=== PATIENT | female | born 1950 | race Caucasian/White ===

== ENCOUNTER 2022-06-20 11:15 | Outpatient (CLI) | payer MEDICARE, BC, SELFPAY ==
--- NOTE | 2022-06-20 11:30 | CRLHL7_ITS ---
For Patients: As a result of the Century Cures Act, medical imaging exams and procedure reports are released immediately into your electronic medical record. You may view this report before your referring provider. If you have questions, please contact your health care provider. BILATERAL SCREENING MAMMOGRAM WITH COMPUTER-AIDED DETECTION AND TOMOSYNTHESIS TECHNIQUE: CC and MLO views were obtained. These mammographic images have been obtained using full-field digital technique. These mammographic images were interpreted with the benefit of computer-aided detection. Breast Tomosynthesis was used in this interpretation. COMPARISON FILM: 05/23/21, 05/19/20, 01/28/19. FINDINGS: There are scattered areas of fibroglandular density IMPRESSION: There is no radiographic evidence for malignancy. ASSESSMENT: BI-RADS Category 1: Negative RECOMMENDATION: Routine screening mammogram in 1 year. A lay language report of this examination will be provided to the patient. Nadeem Irizarry M.D. Diagnostic Radiologist [email or web address] MACKENZIE/Dictated by: Nadeem Irizarry MD @ 06/20/2022 12:07:00 PM (Electronically Signed)
--- OUTSIDE RECORDS SUMMARY | 2022-06-20 11:34 | XMS_ITS | Clinical Summary ---
:[id number] Author Organization [facility] [place] [address] Care Team Providers Name Role Phone Marisol Loja MD Primary Care Provider [phone] Allergies Active Allergy Reactions Severity Noted Date Comments Venom-Honey Bee Throat Swelling/Closing 04/11/2015 Cyclobenzaprine 10/05/2009 Tuna Oil Hives 12/28/2011 Medications Medication Sig Dispensed Refills Start Date End Date Status ibuprofen (ADVIL; Take 1 tablet by 30 tablet 0 05/25/2014 Active MOTRIN) 600 mg tablet mouth every 6 hours if needed for Pain. naproxen (NAPROSYN) Take 1 tablet by 30 tablet 1 10/09/2014 Active 500 mg tablet mouth 2 times daily with meals. lisinopril-hydrochloro Take 1 tablet by 90 tablet 3 04/11/2015 Active thiazide (10-12.5 mg) mouth once daily. tablet (PRINZIDE; ZESTORETIC)Indications : HTN (hypertension) blood sugar diagnostic Dispense test 50 Strip 3 05/10/2015 Active (ACCU-CHEK SMARTVIEW strips covered by TEST STRIP) the patient stripIndications: Type insurance. Test 3 2 diabetes mellitus times per week without complication (HC) lancets (ACCU-CHEK Test 3 times per 102 Each 3 05/10/2015 Active FASTCLIX)Indications: week Type 2 diabetes mellitus without complication (HC) bisacodyl (DULCOLAX) 5 Take 1 tablet by 1 tablet 0 05/10/2015 Active mg tabletIndications: mouth once daily Type 2 diabetes if needed for mellitus without Constipation. complication (HC) Patient reported Active Problems Problem Noted Date Type 2 diabetes mellitus without complication 04/12/20 15 Endometrial cancer 05/25/2014 Symptomatic varicose veins 02/09/2013 Morbid obesity 12/28/2011 HTN (hypertension) 12/28/2011 Immunizations Name Administration Dates Next Due Tdap 12/28/2011 Zoster (Zostavax-ZVL, live) 03/12/2014 Family History Medical History Relation Name Comments Cancer Brother 1 Cancer Brother 2 Cancer Brother 3 pancreatic Heart Disease Brother 4 Cancer Father lymph nodes Heart Disease Mother Stroke Mother Thyroid Disease Sister Cancer-breast No Family History Relation Name Status Comments Brother 1 Brother 2 Brother 3 Brother 4 Father Mother Sister Social History Tobacco Use Types Packs/Day Years Used Date Never Smoker Smokeless Tobacco: Never Used Tobacco Cessation: Counseling Given: Yes Alcohol Use Standard Drinks/Week Comments Yes 0 (1 standard drink = 0.6 oz pure alcoho l) rarely (satdings, s) Alcohol Habits Answer Date Recorded How often do you have a drink containing Not asked alcohol? How many drinks containing alcohol do you Not asked have on a typical day when you are drinking? How often do you have six or more drinks on Not asked one occasion? Comment: rarely (s, s) 02/09/2013 Sex Assigned at Date Recorded Not on file Obstetrics History Para Term AB IAB SAB Ectopic Multiple Living Live Births 2 2 2 Date Outcome GA Total Labor/2nd/3rd Weight Sex Delivery Anes PTL Dilia A 1 A5 Name Clin Labor Para Para Last Filed Vital Signs Vital Sign Reading Time Taken Comments Blood Pressure 118/76 04/11/2015 3:19 PM CDT Pulse 60 04/11/2015 3:19 PM CDT Temperature 36.3 ??C (97.4 ??F) 02/19/2015 11:51 AM CDT Respiratory Rate 18 05/27/2014 8:00 AM CDT Oxygen Saturation 96% 04/11/2015 3:19 PM CDT Inhaled Oxygen Concentration - - Weight 112.7 kg (248 lb 6.4 oz) 04/11/2015 3:19 PM CDT Height 160.4 cm (5' 3.15) 04/11/2015 3:19 PM CDT Body Mass Index 43.79 04/11/2015 3:19 PM CDT Plan of Treatment Health Maintenance Due Date Last Done Comments COVID-19 vaccine series (#1) 01/13/1951 Depression screening for age 12+ 1964 BMI (ht and wt on same day) for 1970 age 18+ Hepatitis C screening for age 1007/15/1970 18-79 Zoster (shingles) series for age 0705/07/2014 03/12/2014 50+ (2 of 3) Mammogram for age 45-75 02/15/2016 02/14/2015, 02/23/2014, 02/09/2013, Additional history exists DEXA/DXA scan for age 65+ 2017 04/12/2015 Pneumococcal series for age 65+ (1 2017 - PCV) Colonoscopy through age 75 10/14/2017 10/14/2007 (Completed outside of [facility]), 10/14/2002 (Completed outside of [facility]) Lipids for age 45-75 04/11/2020 04/11/2015, 03/12/2014, 02/09/2013 Tetanus booster 12/27/2021 12/28/2011, 12/28/2011 Influenza for age 65+ 06/14/2022 Tdap Completed 12/28/2011 Results Not on filefrom Last 3 Months Insurance Payer Benefit Plan Subscriber ID Effective Dates Phone Address Type / Group [employer]OR VE[employer]VA [employer] xxxx [phone] [id number]-Prese [phone] [address] [place] [phone] [place] [address] [facility] [id number] 2013-Presen [address] [place] [address] Code,Pastora Rodriguez Motor Vehicle Self 1950 [id number] [place] [address] Advance Directives Latest Code Status on File Code Status Date Activated Date Inactivated Comments Full Code 05/25/2014 1:50 PM 05/27/2014 3:28 PM Full Code 05/25/2014 5:33 AM 05/25/2014 1:50 PM Care Teams Tyre Builder Relationship Specialty Start Date End Date Marisol Loja MD PCP - General Family Practice 02/19/[address] [place] [address]
== END 2022-06-20 11:16 | disposition home or self-care (01) ==
LOC: MAMMO 11:16
PROVIDERS: PCP Family Medicine; Visit Provider Family Medicine
DX: Z12.31 Encounter for screening mammogram for malignant neoplasm of breast (principal)
CPT/HCPCS: 77063; 77067

== ENCOUNTER 2022-07-31 14:30 | Outpatient (RCR) | payer MEDICARE, BC, SELFPAY ==
--- NOTE | 2022-06-27 14:14 | PT.OPEX ---
PT [place] Outpatient Eval PT [facility] Outpatient Eval Start: 06/27/22 12:18 Freq: Status: Active Protocol: Document 06/27/22 12:18 JINA (Rec: 06/27/22 14:06 CLGordon [id number]) E-signed By Olga Johnson PT Physical Therapy Outpatient Evaluation Insurance Information Recert Due Date 09/19/22 Insurance Name Medicare B Medical Diagnosis Lt Knee Pain Treating Diagnosis Lt Knee Pain Reduced ambulation endurance Referring MD Alejo Gunn Subjective Subjective Pastora reports having a fall about 9 days ago, on . Immediate pain, went to Dr one week later. They did 3 X- Rays and no MRI, no Fracture. This is her first injury. She has much swelling, arthritis and bone spurs, some cartiledge damage but not a surgical candidate. Pain is fairly constant. Ice and elevation does help. Take Tylenol and ibuprofen, trying to reduce walking. I was seeing a chiro for Rt hip/LBP. May have a leg length deviation. She has a jade dog that she would like to get back to walking daily for 45 min with the dog. Still able to perform all previous home tasks and yard chores, just rest a bit more. She can go up / down stairs but rely heavily on use of railings and step to vs normal Rt/Lt. Naping now to rest too, normally do not. Pain is pretty localized to the front of her knee and sometimes medially. Pain Comments 0-7/10 Date of Last Physician Visit 06/21/22 Current Work Status Retired Preferred Name Alejo Gunn PAC Precautions Treatment Precautions/Contraindications Diabetes, OA, CA Weight Bearing Status Full Weight Bearing Therapy Limitations/Systems Review Vision Objective Range of Motion Rt knee 0-115 / Lt 0-50 deg PROM Lt involved knee 0-82 deg Strength 3+/5 MMT Lt knee Rt is 5/5 Swelling Mid Patellar girth: Rt 43.4 cm /Lt involved 45.5 cm Palpation Very sensitive at mid and lateral aspect of Lt knee, also at mid ADD group. Hypertonic at mid to distal ITB, mid to distal quad, upper gastroc. Pain free patellar grind, light pressure Balance & Gait Sit to stand with weight primarily on Rt non-involved leg. 3 sec SLS She ambulates with moderately increased lateral trunk sway Assessment Assessment/Impression 71 yo with DX of Lt knee pain residual to a fall on 95/22. She ambulates with reduced WB into involved Lt LE, but without any AD. She A/D stairs non-reciprocally. Sit to stand with reduced Lt knee flex and reduced WB into Lt LE . She can SLS for 3 sec neftaly ( difficult on Rt side too because of pre-existing Rt LB and Hip pain). Mid patellar girth is 1.5 cm greater on the Lt side. AROM is limited 0-50 deg / PROM 0-85 deg. She palpably has pain with light to moderate pressure at distal pat and lateral aspect of knee. Pain with palpation also at mid ADD, mid to distal quad. Hypertonicity at mid to distal ITB and upper 1/3 of gastroc. Normal ankle AROM. She can perform a quad set and a SLR independently. Hematoma thickness noted mid ADD group but not below knee. She will benefit from continued skilled physical therapy to perform STM/MFR/decongestive massage, TASTM, and progressive stretch /strength and gait training. Thank you for this referral. Plan of Care Rehabilitation Potential Good Physical Therapy Goals In 4-6 visits, Pastora will be able to: 1. Sit to stand with symmetric LE WB and without use of UE on chair arms 2. A/D flight of 10 steps with reciprocal pattern and symmetric WB 3. Symmetric mid patellar girth with reduced edema In 8-10 visits, Pastora will be able to: 1. IND in entire HEP with emphasis on alignment, pace and reps/endurance 2. Walk/stand for up to 45 min to resume walking dog for ex at least once per day 3. Return to PLOF pre fall injury of 10 days s/p Coordination/Communication With Referral Source Treatment Plan/Direct Interventions Ice/Cold/Vasopneumatic,Joint Mobilization,Manual Therapy, Neuromuscular Re-ed,Self-Care/ Home Management,Therapeutic Activities,Therapeutic Exercises Frequency/Duration 1X/Wk for 10 visits Patient Will Be Discharged From Therapy Completion of LTG(s),Skills Plateau,Independent w/HEP, Independently Progressing Evaluation Billing Untimed Code Treatment Minutes 28 Complexity Moderate Certification Information Initial Certification Date 06/27/22 Ending Certification Date 09/19/22 Provider Signature Shows Agreement With POC & Medical Necessity Physician Comment/Change Comment or Changes Physician NPI Number #
== END 2022-09-04 15:01 | disposition home or self-care (01) ==
PROVIDERS: PCP Family Medicine; Visit Provider Physician Assistant Surgical
DX: M25.562 Pain in left knee (principal); Z51.89 Encounter for other specified aftercare
CPT/HCPCS: 97110; 97140; 97162

== ENCOUNTER 2022-10-25 10:02 | Outpatient (CLI) | payer MEDICARE, BC, SELFPAY ==
[2022-10-25 12:59] LABS: Albumin* 4.2 g/dL (3.3-5.0); Chloride* 104 mmol/L (96-114); Sodium* 140 mmol/L (135-149)
[2022-10-25 13:00] LABS: Potassium* 4.8 mmol/L (3.6-5.1)
[2022-10-25 13:01] LABS: Cholesterol* 187 mg/dL (90-199)
[2022-10-25 13:02] LABS: Alanine Aminotransferase* 32 U/L (4-35); Alkaline Phosphatase* 65 U/L (40-150); Aspartate Amino Transferase* 23 U/L (12-35); Bilirubin Total* 1.3 mg/dL (0.1-1.5); Blood Urea Nitrogen* 16 mg/dL (7-30); Calcium* 9.6 mg/dL (8.4-10.6); Carbon Dioxide* 32 mmol/L (20-32); Creatinine* 0.6 mg/dL (0.5-1.5); Estimated Glomerular Filt Rate 97 ml/min; Glucose* 129 mg/dL (60-115); Total Protein* 6.8 g/dL (6.0-8.3); Triglycerides* 121 mg/dL (40-149)
[2022-10-25 13:03] LABS: HDL Cholesterol* 78 mg/dL (>=50); LDL Cholesterol Calculated 85 mg/dL (<100)
[2022-10-25 13:10] LABS: Creatinine Urine 63.6 mg/dL
[2022-10-25 13:14] LABS: Microalbumin Creatinine Ratio 10 mg/g (0-30); Microalbumin Urine < 1 mg/dL
== END 2022-10-25 10:03 | disposition home or self-care (01) ==
LOC: NFLDREF 10:02
PROVIDERS: PCP Family Medicine; Visit Provider Family Medicine
DX: Z00.00 Encounter for general adult medical examination without abnormal findings (principal); I10 Essential (primary) hypertension; E11.9 Type 2 diabetes mellitus without complications; E66.01 Morbid (severe) obesity due to excess calories; E78.5 Hyperlipidemia, unspecified
CPT/HCPCS: 80053; 80061; 82043; 82570

== ENCOUNTER 2022-11-07 13:08 | Outpatient (CLI) | payer MEDICARE, BC, SELFPAY ==
--- NOTE | 2022-11-07 13:30 | CRLHL7_ITS ---
For Patients: As a result of the Century Cures Act, medical imaging exams and procedure reports are released immediately into your electronic medical record. You may view this report before your referring provider. If you have questions, please contact your health care provider. DXA BONE MINERAL DENSITY STUDY Reason for exam: Left hip osteopenia. Current height (in): 63. Weight (lb): 255. Menopause age: 52. Ethnicity: White. 1. Have you had a previous hip or vertebral fracture? No. 2. Have you had any fractures during your adult life which did not result from significant trauma (e.g., auto accident)? No. 3. Did either of your parents have a hip fracture? No. 4. Do you smoke? No. 5. Have you ever taken Glucocorticoids? No. 6. Do you have rheumatoid arthritis? No. 7. Do you have secondary osteoporosis? No. 8. Do you drink 3 or more alcoholic drinks per day? No. 9. Are you being treated for osteoporosis? No. 10. Have you ever taken any of the following medications: Actonel, Evista, Fosamax, Miacalcin, Reclast, Boniva, Forteo, HRT (i.e., estrogen/hormone therapy), Protelos, Prolia, Vitamin D, Calcium, other ??? please specify. ANSWER: Yes, vitamin D. 11. Do you have any of the following medical conditions: Anorexia or bulimia, asthma or emphysema, end stage renal disease, hyperparathyroidism, any seizure disorders, cancer, inflammatory bowel diseases, hysterectomy, other ??? please specify. ANSWER: Yes, cancer and hysterectomy. 12. What was your maximum height (inches)? 63. 13. Do you perform weight bearing exercise regularly? No. 14. Do you regularly consume dairy products? Yes. 15. Do you drink caffeinated beverages? Yes. If female: 16. At what age did your period start? 14. 17. Are you premenopausal? No. 18. How many full-term pregnancies have you had? 2. 19. Have you ever missed your period for more than 6 months in a row (not including or menopause)? No. TECHNIQUE: Bone mineral density study was performed using the [employer]. FINDINGS: The results of the study expressed as bone mineral density (BMD) are as follows: Lumbar spine L1 to L3: BMD: 1.012 g/cm2. T-score: -0.1. Z-score: 2.0 Neck Left: BMD: 0.789 g/cm2. T-score: -0.5. Z-score: 1.3 Right: BMD: 0.830 g/cm2. T-score: -0.2. Z-score: 1.6 Total Left: BMD: 1.018 g/cm2. T-score: 0.6. Z-score: 2.1 Right: BMD: 1.029 g/cm2. T-score: 0.7. Z-score: 2.2 IMPRESSION: Normal bone density. *Comparison exams done prior to 03/2020 were performed on different unit, [employer]. COMPARISON: Compared with scan of 11/03/2018, the bone mineral density has decreased by 0.6 percent at the spine and decreased by 1.4 percent at the hip. SRIRAM MARROQUIN M.D. Diagnostic/Nuclear Medicine Radiologist [email or web address] [place]:[email or web address] hoyt/Dictated by: Sriram Marroquin MD @ 11/07/2022 2:29:00 PM (Electronically Signed)
== END 2022-11-07 13:09 | disposition home or self-care (01) ==
PROVIDERS: PCP Family Medicine; Visit Provider Family Medicine
DX: M85.80 Other specified disorders of bone density and structure, unspecified site (principal)
CPT/HCPCS: 77080

== ENCOUNTER 2022-11-22 14:43 | Emergency (ER) | payer MEDICARE, BC, SELFPAY ==
[2022-11-22 14:48] VITALS: BP 117/69; PULSE 83; RESP 22; TEMP 36.3; O2SAT 97; BMI 45.2
--- NOTE | 2022-11-22 15:03 | CRLHL7_ITS ---
For Patients: As a result of the Century Cures Act, medical imaging exams and procedure reports are released immediately into your electronic medical record. You may view this report before your referring provider. If you have questions, please contact your health care provider. INDICATION: Fall. TECHNIQUE: CT of the head without contrast. Coronal and sagittal reformats are included. COMPARISON: None. FINDINGS: No acute intracranial hemorrhage. No mass effect or midline shift. No hydrocephalus or extra-axial collections. White matter is within normal limits for age. Vascular calcifications carotid siphons. No acute osseous abnormalities. Mastoid air cells and paranasal sinuses are clear. Normal soft tissues. IMPRESSION: IMPRESSION: 1. No acute intracranial abnormalities. Please note that all CT scans at this facility use dose modulation, iterative reconstruction, and/or weight-based dosing when appropriate to reduce radiation dose to as low as reasonably achievable. Dictated by Eusebio Higgins MD @ 11/22/2022 4:17:33 PM (Electronically Signed)
--- NOTE | 2022-11-22 15:03 | CRLHL7_ITS ---
For Patients: As a result of the Century Cures Act, medical imaging exams and procedure reports are released immediately into your electronic medical record. You may view this report before your referring provider. If you have questions, please contact your health care provider. INDICATION: Fall. TECHNIQUE: CT of the cervical spine without contrast. Coronal and sagittal reformats are included. COMPARISON: None. FINDINGS: No acute fracture or traumatic malalignment of the cervical spine. Craniocervical junction alignment is maintained. Scattered cervical spondylosis without high grade neural foraminal stenosis. No high grade spinal canal stenosis as far as visualized. Imaged intracranial structures, cervical and paraspinous soft tissues are normal in appearance. The visualized pulmonary apices are clear. IMPRESSION: 1. No acute fracture or traumatic malalignment of the cervical spine. Please note that all CT scans at this facility use dose modulation, iterative reconstruction, and/or weight-based dosing when appropriate to reduce radiation dose to as low as reasonably achievable. Dictated by Eusebio Higgins MD @ 11/22/2022 4:19:36 PM (Electronically Signed)
--- NOTE | 2022-11-22 15:03 | CRLHL7_ITS ---
For Patients: As a result of the Century Cures Act, medical imaging exams and procedure reports are released immediately into your electronic medical record. You may view this report before your referring provider. If you have questions, please contact your health care provider. INDICATION: Fall. TECHNIQUE: CT of the chest without IV contrast. Coronal and sagittal reconstructions. COMPARISON: None. FINDINGS: Heart size upper limits of normal. Mild aneurysmal dilation of the ascending thoracic aorta measuring 4.0 cm in AP dimension. Coronary artery calcifications. Mitral annulus calcifications. Central pulmonary arteries are mildly prominent. No pericardial effusion or mediastinal hematoma. No thoracic lymphadenopathy. The imaged thyroid gland is normal in appearance. No focal consolidation, pleural effusion, or pneumothorax. No central endobronchial lesion or bronchial wall thickening. 8 mm noncalcified pulmonary nodule in the anterior right upper lobe (series 6, image 31). 3 mm noncalcified pulmonary nodule in the medial right lower lobe (image 37). 5 mm noncalcified pulmonary nodule in the lateral right lower lobe (image 44). 3 mm noncalcified pulmonary nodule in the posterior right lower lobe (image 45). 3 mm noncalcified pulmonary nodule in the left lower lobe (image 49). 3 mm noncalcified pulmonary nodule in the posteromedial left upper lobe (image 20). 2 mm noncalcified pulmonary nodule in the posterior left apex (image 13). Hepatic steatosis. Cholelithiasis. The visualized unenhanced upper abdomen is otherwise unremarkable. Degenerative changes of the spine. Slight contour abnormality of the right anterior 5th-7th ribs and left anterior 5th rib may represent nondisplaced fractures. Subcutaneous fat stranding in the left breast likely due to contusion. IMPRESSION: 1. Subcutaneous fat stranding in the left breast likely due to contusion. 2. Slight contour abnormality of the right anterior 5th-7th ribs and left anterior 5th rib may represent nondisplaced fractures, age indeterminate. 3. Multiple noncalcified pulmonary nodules measuring up to 8 mm. Please see follow-up guidelines below. 4. Mild aneurysmal dilation of the ascending thoracic aorta. 5. Hepatic steatosis. [employer] SOCIETY GUIDELINES - SOLID NODULES: : SINGLE LOW RISK - nodule less than 6 mm: No routine follow-up. - nodule 6-8 mm: CT at 6-12 months, then consider CT at 18-24 months. - nodule greater than 8 mm: Consider CT at 3 months, PET/CT or tissue sampling. SINGLE HIGH RISK - nodule less than 6 mm: Optional CT at 12 months. - nodule 6-8 mm: CT at 6-12 months, then CT at 18-24 months. - nodule greater than 8 mm: Consider CT at 3 months, PET/CT or tissue sampling. MULTIPLE LOW RISK - nodule less than 6 mm: No routine follow-up. - nodule 6-8 mm: CT at 3-6 months, then consider CT at 18-24 months. - nodule greater than 8 mm: CT at 3-6 months, then consider CT at 18-24 months. MULTIPLE HIGH RISK - nodule less than 6 mm: Optional CT at 12 months. - nodule 6-8 mm: CT at 3-6 months, then at 18-24 months. - nodule greater than 8 mm: CT at 3-6 months, then at 18-24 months. Please note that all CT scans at this facility use dose modulation, iterative reconstruction, and/or weight-based dosing when appropriate to reduce radiation dose to as low as reasonably achievable. Dictated by Anais Pitt MD @ 11/22/2022 5:06:16 PM (Electronically Signed)
--- NOTE | 2022-11-22 15:06 | ED.FALL ---
HPI - Fall General Chief Complaint: Fall/Minor Trauma Stated Complaint: Fell two days ago, chest pain Time Seen by Provider: 11/22/22 14:53 History of Present Illness HPI Narrative: Pt is a 72 year old woman who slipped and fell on the ice 2 days ago. Pt was walking her dog which she believes is a Husky. The dog lunged and the patient lost her balance and was pulled forward to the ground. Pt hit the front of her head on the street but did not lose consciousness. Pt was able to get herself up and get home. No neurological symptoms have been noted. Pt comes in with mild frontal head pain and pain in the sternum which is moderate. Pt has a difficult time taking a deep breath due to the discomfort in the sternum. No abd pain. No skin breakdown. No lower extremity pain. There were no skin tears but the patient does have a bruise 3 x 3 cm in the left superior breast. Pt has been doing fine since the accident but comes in today because of the discomfort as above. Related Data Home Medications Medication Instructions Recorded Confirmed aspirin 81 mg tablet,delayed 81 mg PO DAILY 04/18/22 11/22/22 release blood sugar diagnostic ([facility] 04/18/22 10/30/22 Verio test strips) [facility] 04/18/22 10/30/22 Lancets) Previous Rx's Medication Instructions Recorded fluticasone propionate 50 2 spray intranasal DAILY #16 grams 04/18/22 mcg/actuation nasal spray,suspension cholecalciferol (vitamin D3) 50 2,000 unit PO BID #100 tabs 10/30/22 mcg (2,000 unit) tablet lisinopril 10 1 tab PO DAILY #100 tabs 10/30/22 mg-hydrochlorothiazide 12.5 mg tablet simvastatin 10 mg tablet 10 mg PO .Bedtime #90 tabs 10/30/22 metformin 500 mg tablet,extended 1,000 mg PO BID #360 tabs 11/07/22 release 24 hr Allergies Allergy/AdvReac Type Severity Reaction Status Date / Time bupropion [From Contrave] Allergy Intermediate Nausea, Verified 10/30/22 10:15 Vomiting naltrexone [From Contrave] Allergy Intermediate Nausea, Verified 10/30/22 10:15 Vomiting cyclobenzaprine Allergy Unknown Verified 10/30/22 10:15 bee pollen Allergy Verified 10/30/22 10:15 tuna oil Allergy Verified 10/30/22 10:15 Review of Systems Status of ROS: Reports: 10 or more systems reviewed and unremarkable except as noted in History and below [facility] Medical History Diabetic retinopathy (03/2022) Hirsutism History of acute pancreatitis (2011) History of echocardiography (2013) Hypertension Malignant neoplasm of uterus (2013) Morbid obesity with body mass index (BMI) of 40.0 to 44.9 in adult Osteopenia Patellar contusion Type 2 diabetes mellitus Vitamin D deficiency Surgical History History of bilateral salpingo-oophorectomy (BSO) History of colonoscopy (08/07/18) History of hysterectomy (2013) History of right knee surgery (1985) History of robot-assisted laparoscopic hysterectomy (2013) Family History Brother Asthma Diabetes Pancreatic cancer Mother Coronary artery disease Sister Thyroid disease Social History (Updated 10/29/22 @ 12:48 by Gissell Sanchez MD) Narrative: , retired senia, 2 adult children, lives [place] , [place] Exercises regularly, 7000 steps/day Non-smoker Rarely consumes alcohol Smoking Status: Former smoker Do you use any of these nicotine containing products: None Second hand tobacco smoke exposure: No How often do you have a drink containing alcohol: never AUDIT-C Alcohol total score: 0 Non-prescribed substance use: denies use Little interest or pleasure in doing things: not at all Feeling down, depressed, or hopeless: not at all Exam Narrative: Exam Narrative: EXAM GENERAL: Patient appears comfortable and well. EYES: No scleral icterus. ENT: Tympanic membranes and oropharynx normal. THYROID: no thyroid nodules or thyromegaly. LYMPH: No supraclavicular or cervical lymphadenopathy. SKIN: Visible skin seen during exam normal or with benign process only. Small bruise noted left superior medial breast. EXT: No dependent lower extremity pedal edema. HEART: Regular rate and rhythm with no murmurs, rubs, or gallops. LUNGS: Clear to auscultation bilaterally with no crackles or wheezes. ABD: Soft, non tender, non distended. PSYCH: Good eye contact, speech is not pressured. Neurologic cranial nerves 2-12 grossly intact no focal defects. Const: Vital Signs, click to edit/add: Vital Signs - 24 hr 11/22/22 14:48 Temperature 97.4 F L Pulse Rate [Pulse Oximeter] 83 Respiratory Rate 22 Blood Pressure [Ri ght Upper Arm] 117/69 Pulse Oximetry 97 Course Course Hospital Course: Pt seen and examined. CT of head, neck and thorax ordered. Patient was signed out to me by Dr. Bradford to follow-up on CT scans of the head, neck and chest. Seen primarily by Dr. Bradford, please see his dictation for full details. CT of the head and neck are read by Radiology as negative for acute findings. On the chest, they report irregularities of the cortex of the right 5th through 7th ribs and left 7th rib, possibly representing a nondisplaced rib fractures of indeterminate age. Given patient's tenderness in these areas these likely represent acute rib fractures. These are nondisplaced, there is no underlying pulmonary injury and the injury was a couple of days ago. I think she can be managed conservatively with pain medication and ice. She says that she usually does well with ibuprofen or Aleve, have recommended that she try ibuprofen and Tylenol together as I think that is a little bit more effective than ibuprofen alone. Ice liberally. We talked about a rib binder but I think with her breast tissue, she likely will not have as much success with that and she would like to forego that. She should not walk the dog for probably at least a few weeks here, as I think that will aggravate her injury. Return for shortness of breath, fever, cough or other new symptoms. She also has some pulmonary nodules which will need follow-up, this should be accomplished through Primary Care. Vital Signs Vital signs: Initial Vital Signs Temperature 97.4 F L 11/22/22 14:48 Temperature Source Temporal Artery Scan 11/22/22 14:48 Pulse Rate 83 11/22/22 14:48 Respiratory Rate 22 11/22/22 14:48 Blood Pressure 117/69 11/22/22 14:48 Blood Pressure Mean 85 11/22/22 14:48 Blood Pressure Position Sitting 11/22/22 14:48 Pulse Oximetry 97 11/22/22 14:48 Vital Signs Temperature 97.4 F L 11/22/22 14:48 Pulse Rate 83 11/22/22 14:48 Respiratory Rate 22 11/22/22 14:48 Blood Pressure 117/69 11/22/22 14:48 Pulse Oximetry 97 11/22/22 14:48 Temperature 97.4 F L 11/22/22 14:48 Pulse Rate 83 11/22/22 14:48 Respiratory Rate 22 11/22/22 14:48 Blood Pressure 117/69 11/22/22 14:48 Pulse Oximetry 97 11/22/22 14:48 MDM - Fall MDM Narrative Medical decision making narrative: Pt is a 72 year old woman injured on a fall on the ice 2 days ago. Pt struck her head and chest and has significant pain over the anterior chest. Differential Diagnosis Differential diagnosis: Likely syncope, compression fracture, concussion with loss of consciousness and concussion without loss of consciousness Discharge Plan Discharge Clinical Impression: Contusion, Multiple rib fractures Patient Disposition: Home, Self-Care Condition: Stable Instructions: Rib Fracture (ED) Additional Instructions: Ice as needed. Ibuprofen 400 mg plus Tylenol 1000 mg 3 times daily with food for the next week or so as needed. Return for worsening shortness of breath, fever, significant cough or other new symptoms. Rib fractures typically takes 6-8 weeks to heal completely, pain will gradually improve over that time. Follow up with primary care for rib fractures. You should also follow-up with primary care in the next 1-2 months regarding a couple of pulmonary nodule seen on chest CT, these are likely non consequential but may need a follow-up CT scan which should be arranged through your primary care doctor. Activity Level: No Restrictions Discharge Diet: Regular Prescriptions: No Action aspirin 81 mg tablet,delayed release (DR/EC) 81 mg PO DAILY (DME) OneTouch Verio test strips Strip See Rx Instructions .Route Rx Instructions: As directed (DME) lancets [OneTouch Delica Lancets] 33 gauge misc See Rx Instructions .Route Rx Instructions: As directed fluticasone propionate 50 mcg/actuation spray,suspension 2 spray intranasal DAILY Qty: 16 8RF simvastatin 10 mg tablet 10 mg PO .Bedtime Qty: 90 4RF lisinopril-hydrochlorothiazide 10-12.5 mg tablet 1 tab PO DAILY Qty: 100 4RF cholecalciferol (vitamin D3) 50 mcg (2,000 unit) tablet 2,000 unit PO BID Qty: 100 5RF metformin 500 mg tablet extended release 24 hr 1,000 mg PO BID Qty: 360 4RF Follow Up/Referrals: Gissell Sanchez MD [Primary Care Provider] - Stand Alone Forms: fintonic Info Instructions
== END 2022-11-22 18:14 | disposition home or self-care (01) ==
PROVIDERS: Emergency Provider Internal Medicine; PCP Family Medicine
DX: S00.83XA Contusion of other part of head, initial encounter (principal); S22.41XA Multiple fractures of ribs, right side, initial encounter for closed fracture; S22.32XA Fracture of one rib, left side, initial encounter for closed fracture; W54.1XXA Struck by dog, initial encounter; W18.30XA Fall on same level, unspecified, initial encounter
CPT/HCPCS: 70450; 71250; 72125; 99283; 99284

== ENCOUNTER 2023-03-29 09:33 | Outpatient (CLI) | payer MEDICARE, BC, SELFPAY | END 2023-03-29 09:34 | disposition home or self-care (01) | LOC: NFLDREF 04-01 08:51 | PROVIDERS: PCP Family Medicine; Referring Provider Family Medicine; Visit Provider Family Medicine | DX: E11.9 Type 2 diabetes mellitus without complications (principal); E55.9 Vitamin D deficiency, unspecified; E78.5 Hyperlipidemia, unspecified; I10 Essential (primary) hypertension; M85.80 Other specified disorders of bone density and structure, unspecified site; E66.01 Morbid (severe) obesity due to excess calories; Z68.41 Body mass index [BMI] 40.0-44.9, adult | CPT/HCPCS: 80048; 80061; 82043; 82306; 82570 ==

== ENCOUNTER 2023-05-21 09:41 | Outpatient (CLI) | payer MEDICARE, BC, SELFPAY ==
--- NOTE | 2023-05-21 10:00 | CRLHL7_ITS ---
For Patients: As a result of the Century Cures Act, medical imaging exams and procedure reports are released immediately into your electronic medical record. You may view this report before your referring provider. If you have questions, please contact your health care provider. Indication: Follow up nodules he, endometrial cancer Technique: Noncontrast CT chest Please note that all CT scans at this facility use dose modulation, iterative reconstruction, and/or weight-based dosing when appropriate to reduce radiation dose to as low as reasonably achievable. Comparison: 11/22/2022 Findings: Diffuse low attenuation of the liver noted. Small calcified stones in gallbladder. Vascular calcifications. No mediastinal, hilar or axillary adenopathy. 3.8 millimeter nodule left upper lobe is unchanged, 3/22. 3 millimeter nodule left lower lobe unchanged, . Stable triangular nodule within right anterior lung measuring 8 millimeters. Other smaller nodules are similar within the right lung. No pleural effusion or edema. No pneumothorax or infiltrate. No fracture. No intrinsic osseous lesion. Impression: Stable bilateral pulmonary nodules. No adenopathy. Cholelithiasis. Hepatic steatosis. Stable ribcage. Please note that all CT scans at this facility use dose modulation, iterative reconstruction, and/or weight-based dosing when appropriate to reduce radiation dose to as low as reasonably achievable. Dictated by Nadeem Irizarry MD @ 05/21/2023 12:42:26 PM (Electronically Signed)
== END 2023-05-21 09:42 | disposition home or self-care (01) ==
LOC: CT 09:42
PROVIDERS: PCP Family Medicine; Visit Provider Family Medicine
DX: R91.8 Other nonspecific abnormal finding of lung field (principal); K80.20 Calculus of gallbladder without cholecystitis without obstruction; K76.0 Fatty (change of) liver, not elsewhere classified
CPT/HCPCS: 71250

== ENCOUNTER 2023-09-13 08:45 | Outpatient (CLI) | payer MEDICARE, BC, SELFPAY | END 2023-09-13 08:46 | disposition home or self-care (01) | LOC: NFLDREF 09-16 03:40 | PROVIDERS: PCP Family Medicine; Referring Provider Family Medicine; Visit Provider Family Medicine | DX: I10 Essential (primary) hypertension (principal); E11.9 Type 2 diabetes mellitus without complications; Z79.899 Other long term (current) drug therapy; E78.5 Hyperlipidemia, unspecified | CPT/HCPCS: 80053; 80061; 82043; 82570; 82607 ==

== ENCOUNTER 2023-09-17 12:41 | Outpatient (CLI) | payer MEDICARE, BC, SELFPAY ==
--- NOTE | 2023-09-17 13:00 | CRLHL7_ITS ---
For Patients: As a result of the Cures Act, medical imaging exams and procedure reports are released immediately into your electronic medical record. You may view this report before your referring provider. If you have questions, please contact your health care provider. BILATERAL SCREENING MAMMOGRAM WITH COMPUTER-AIDED DETECTION AND TOMOSYNTHESIS TECHNIQUE: CC and MLO views were obtained. These mammographic images have been obtained using full-field digital technique. These mammographic images were interpreted with the benefit of computer-aided detection. Breast Tomosynthesis was used in this interpretation. COMPARISON FILM: 06/20/22, 05/23/21, 05/19/20. FINDINGS: There are scattered areas of fibroglandular density IMPRESSION: There is no radiographic evidence for malignancy. ASSESSMENT: BI-RADS Category 1: Negative RECOMMENDATION: Routine screening mammogram in 1 year. A lay language report of this examination will be provided to the patient. Nadeem Irizarry M.D. Diagnostic Radiologist [email or web address] Transcribed: 6:22 p.mKrishna hoyt/Dictated by: Nadeem Irizarry MD @ 09/18/2023 1:44:00 PM (Electronically Signed)
== END 2023-09-17 12:42 | disposition home or self-care (01) ==
LOC: MAMMO 12:42
PROVIDERS: PCP Family Medicine; Visit Provider Family Medicine
DX: Z12.31 Encounter for screening mammogram for malignant neoplasm of breast (principal)
CPT/HCPCS: 77063; 77067

== ENCOUNTER 2023-10-24 09:44 | Outpatient (CLI) | payer MEDICARE, BC, SELFPAY ==
--- OUTSIDE RECORDS SUMMARY | 2023-10-24 09:52 | XMS_ITS | Clinical Summary ---
Author Name Unknown Organization [facility] Address [place], [place] [address] Care Team Providers Care Paste Mixer Name Role Phone Marisol Loja MD Primary Care Provider Allergies Active Allergy Reactions Criticality Noted Date Comments Venom-Honey Bee Throat Swelling/Closing 015 Cyclobenzaprine 10/05/2009 Tuna Oil Hives 12/28/2011 Medications Medication Sig Dispensed Refills Start Date End Date Status ibuprofen (ADVIL; MOTRIN) 600 mg tablet Take 1 tablet by mouth every 6 hours if needed for Pain. 30 tablet 0 05/25/2014 Active naproxen (NAPROSYN) 500 mg tablet Take 1 tablet by mouth 2 times daily with meals. 30 tablet 1 10/09/2014 Active lisinopril-hydrochlor othiazide (10-12.5 mg) tablet (PRINZIDE; ZESTORETIC)Indication s:HTN (hypertension) Take 1 tablet by mouth once daily. 90 tablet 3 04/11/2015 Active blood sugar diagnostic (ACCU-CHEK SMARTVIEW TEST STRIP) stripIndications:Type 2 diabetes mellitus without complication (HC) Dispense test strips covered by the patient insurance. Test 3 times per week 50 Strip 3 05/10/2015 Active lancets (ACCU-CHEK FASTCLIX)Indications: Type 2 diabetes mellitus without complication (HC) Test 3 times per week 102 Each 3 05/10/2015 Active bisacodyl (DULCOLAX) 5 mg tabletIndications:Typ e 2 diabetes mellitus without complication (HC) Take 1 tablet by mouth once daily if needed for Constipation. Patient reported 1 tablet 0 05/10/2015 Active Active Problems Problem Noted Date Diagnosed Date Type 2 diabetes mellitus without complication Endometrial cancer 05/25/2014 Symptomatic varicose veins 02/09/2013 [...] Tobacco Use Types Packs/Day Years Used Date Smoking Tobacco: Never Smokeless Tobacco: Never Tobacco Cessation:Counseling Given: Yes Alcohol Use Standard Drinks/Week Comments Yes 0 (1 standard drink = 0.6 oz pur e alcohol) rarely (weddings, holidays) Sex and Gender Information Value Date Recorded Sex Assigned at Not on file Gender Identity Not on file Sexual Orientation Not on file Obstetrics History Para Term AB IAB SAB Ectopic Multiple Livin g Live Births 2 2 2 Date Outcome GA Total Labor Labor/2nd/3rd Weight Sex Delivery Anes PTL Dilia A1 A5 Name Cl in Para Para Last Filed Vital Signs Vital Sign Reading Time Taken Comments Blood Pressure 118/76 04/11/2015 3:19 PM CDT Pulse 60 04/11/2015 3:19 PM CDT Temperature 36.3 ??C (97.4 ??F) 02/19/2015 1 1:51 AM CDT Respiratory Rate 18 05/27/2014 8:00 AM CDT Oxygen Saturation 96% 04/11/2015 3:19 PM CDT Inhaled Oxygen Concentration - - Weight 112.7 kg (248 lb 6.4 oz) 04/11/2015 3:19 PM CDT Height 160.4 cm (5' 3.15) 04/11/2015 3:19 PM CD T Body Mass Index 43.79 04/11/2015 3:19 PM CDT Plan of Treatment Health Maintenance Due Date Last Done Comments COVID-19 vaccine series (#1) 01/13/1951 Depression screening for age 12+ 1964 BMI (ht and wt on same day) for age 18+ 1970 Hepatitis C screening for ag e 18-79 1970 Zoster (shingles) series for age 50+ (2 of 3) 05/07/2014 03/12/2014 Mammogram for age 45-75 02/15/2016 02/15/20 15, 02/23/2014, 02/09/2013, Additional history exists DEXA/DXA scan for age 65+ 2017 04/12/2015 Pneumococcal series for age 65+ (1 of 1 - PCV) 2017 Colonoscopy through age 75 10/14/201710/14 (Completed outside of [facility]), 10/14/2002 (Completed outside of [facility]) Lipids for age 45-75 04/11/2020 04/11/2015, 03/12/2014, 02/09/2013 Tetanus booster 12/27/2021 12/28/2011, 12/28/2011 Influenza for age 65+ 06/14/2023 Tdap Completed 12/28/2011 Advance Directives Latest Code Status on File Code Status Date Activated Date Inactivated Comments Full Code 05/25/2014 1:50 PM 05/27/2014 3:28 PM Code Status History Code Status Date Activated Date Inactivated Comments Full Code 05/25/2014 5:33 AM 05/25/2014 1:50 PM Care Teams Paste Mixer Relationship Specialty Start Date End Date Marisol Loja MD [address] [place] [address] PCP - General Family Practice 02/19/14
--- NOTE | 2023-10-24 10:31 | W.ANESCHARGE ---
Anesthesia Charges Start Date/Time Anesthesia Start Date: 10/24/23 Anesthesia Start Time: 11:11 Stop Date/Time Anesthesia Stop Date: 10/24/23 Anesthesia Stop Time: 11:38 Summary Extremes of Age - Over 70 or under 1: MDA
--- NOTE | 2023-10-24 11:41 | P.ANES_ITS ---
Anesthesia Charges Start Date/Time Anesthesia Start Date: 10/24/23 Anesthesia Start Time: 11:11 Stop Date/Time Anesthesia Stop Date: 10/24/23 Anesthesia Stop Time: 11:38 Summary Extremes of Age - Over 70 or under 1: MANAGER SEMICONDUCTOR
== END 2023-10-24 09:45 | disposition home or self-care (01) ==
LOC: OP CLINIC 09:47
PROVIDERS: PCP Family Medicine; Visit Provider Surgery
DX: Z12.11 Encounter for screening for malignant neoplasm of colon (principal); K63.5 Polyp of colon; Z86.010 Personal history of colon polyps; Z98.890 Other specified postprocedural states
CPT/HCPCS: 00811; 45385; 88305; 99100; J2704

== ENCOUNTER 2024-03-23 08:45 | Outpatient (CLI) | payer MEDICARE, BC, SELFPAY ==
--- OUTSIDE RECORDS SUMMARY | 2024-03-25 17:39 | XMS_ITS | Clinical Summary ---
Author Organization [facility] Address [place], [place] [address] Care Team Providers Care Farm Helper Name Role Phone PurviMarisol dozier MD Primary Care Provider Allergies Active Allergy Reactions Criticality Noted Date Comments Venom-Honey Bee Throat Swelling/Closing 015 Cyclobenzaprine 10/05/2009 Tuna Oil Hives 12/28/2011 Medications Medication Sig Dispensed Refills Start Date End Date Status ibuprofen (ADVIL; MOTRIN) 600 mg tablet Take 1 tablet by mouth every 6 hours if needed for Pain. 30 tablet 05/25/2014 Active naproxen (NAPROSYN) 500 mg tablet [...] Outcome GA Total Labor Labor/2nd/3rd Weight Sex Type Anes PTL Dilia A1 A5 Name Clin Para Para Last Filed Vital Signs Vital [...] Health Maintenance Due Date Last Done Comments Depression screening for age 12+ 1964 BMI [...] through age 75 10/14/201710/14 (Completed outside of [facility]), 10/14/2002 [facility] Lipids for age 45-75 04/11/2020 04/11/2015, 03/12/2014, 02/09/2013 Tetanus booster 12/27/2021 12/28/2011, 12/28/2011 COVID-19 vaccine series (2022-24 season) 2023 Influenza for age 65+ 06/14/2024 Tdap Completed 12/28/2011 Procedures Procedure Name Priority Date/Time Associated Diagnosis Comments XR DXA BONE DENSITY 2 SITES AXIAL Routine 04/12/2015 4:17 PM CDT Post-menopause LIPID PANEL W REFLEX MEASURED LDL Routine 04/11/2015 4:14 PM CDT Lipid screening XR MAMMO BILAT SCREEN FFDM (IA) Routine 02/14/2015 4:01 PM CDT Other screening mammogram from Last 3 Months or Most Recently Relevant to Health Maintenance Results * (ABNORMAL) XR DXA BONE DENSITY 2 SITES (04/12/2015 4:17 PM CDT) Anatomical Region Laterality Modality Spine, HIPS, HIPL, HIPR Other Narrative 04/13/2015 2:58 PM CDT Please see scanned document for results of this study. Procedure Note Lynette Juarez - 04/13/2015 Please see scanned document for results of this study. Marisol Loja MD DEXA * LIPID PANEL W REFLEX MEASURED LDL (04/11/2015 4:14 PM CDT) [facility] Signature CHOLESTEROL,TOTAL 198 100 - 199 mg/dL 04/11/2015 4:43 PM CDT [facility] TRIGLYCERIDES 120 <150 mg/dL 04/11/2015 4:43 PM CDT [facility] HDL CHOLESTEROL 65 >40 mg/dL 5 4:43 PM CDT [facility] NON-HDL CHOLESTEROL 133 <145 mg/dl 04/11/2015 4:43 PM CDT [facility] CHOL/HDL RATIO 3.05 <4.50 04/11/2015 4:43 PM CDT [facility] LDL CHOLESTEROL 109 <=130 mg/dL 04/11/2015 4:43 PM CDT [facility] PATIENT STATUS NON-FASTI NG 04/11/2015 4:43 PM CDT [facility] Blood specimen (specimen) BLOOD SPECIMEN / Unknown Venipuncture / Unknown 04/11/2015 4:14 PM CDT 04/11/2015 4:14 PM CDT Marisol Loja MD CHEMISTRY [facility] [address] [place] [address], * XR MAMMO BILAT SCREEN FFDM (02/14/2015 4:01 PM CDT) Anatomical Region Laterality Modality BREASTS, Breast Left, Breast Right Bilateral Mammography Impressions 02/15/2015 12:08 PM CDT ??There is no radiographic evidence for malignancy. ??Recommend annual mammograms. A lay language report of this examination will be provided to the patient. MAMMOGRAM ASSESSMENT: ??ACR 2 Benign Narrative 02/15/2015 12:08 PM CDT XR MAMMO BILAT SCREEN FFDM [G0202.0] CLINICAL HISTORY: ??This is an asymptomatic 64 y.o. patient. INDICATION FOR EXAM: Mammogram Screening. TECHNIQUE: CC & MLO views were obtained. ??This digital study was evaluated with the assistance of Computer-Aided Detection. COMPARISON FILMS: Yes 02/23/14 [facility] 02/09/13 [facility] FINDINGS: ??Mammographically, the breast tissue is almost entirely fat. ??No suspicious masses or microcalcifications. ??Benign appearing calcifications within left breast and Intramammary lymph node within both breasts. Procedure Note Naveed Vazquez, DO - 02/15/2015 XR MAMMO BILAT SCREEN FFDM [G0202.0] CLINICAL HISTORY: This is an asymptomatic 64 y.o. patient. INDICATION FOR EXAM: Mammogram Screening. TECHNIQUE: CC & MLO views were obtained. This digital study was evaluatedwith the assistance of Computer-Aided Detection. COMPARISON FILMS: Yes 02/23/14 [facility] 02/09/13 [facility] FINDINGS: Mammographically, the breast tissue is almost entirely fat. Nosuspicious masses or microcalcifications. Benign appearing calcificationswithin left breast and Intramammary lymph node within both breasts. IMPRESSION: There is no radiographic evidence for malignancy. Recommendannual mammograms. A lay language report of this examination will be provided to the patient. MAMMOGRAM ASSESSMENT: ACR 2 Benign Marisol Loja MD MAMMO from Last 3 Months or Most Recently Relevant to Health Maintenance Advance Directives * Full Code (Latest Code Status on File) Date Activated Date Inactivated Comments 05/25/2014 1:50 PM 05/27/2014 3:28 PM * Full Code Date Activated Date Inactivated Comments 05/25/2014 5:33 AM 05/25/2014 1:50 PM Care Teams Farm Helper Relationship Specialty Start Date End Date Marisol Loja MD [address] [facility] [address] PCP - General Family Practice 02/19/14
== END 2024-03-23 08:46 | disposition home or self-care (01) ==
LOC: NFLDREF 03-25 17:36
PROVIDERS: PCP Family Medicine; Referring Provider Family Medicine; Visit Provider Family Medicine
DX: E11.9 Type 2 diabetes mellitus without complications (principal); R79.89 Other specified abnormal findings of blood chemistry; I10 Essential (primary) hypertension; E55.9 Vitamin D deficiency, unspecified; Z79.84 Long term (current) use of oral hypoglycemic drugs
CPT/HCPCS: 80053; 82306; 82607

== ENCOUNTER 2024-09-18 09:26 | Outpatient (CLI) | payer MEDICARE, BC, SELFPAY ==
--- OUTSIDE RECORDS SUMMARY | 2024-09-18 09:29 | XMS_ITS | Clinical Summary ---
Author Organization [employer] [facility] Address [place], [place] [address] Care Team Providers Care Public Relations Intern Name Role Phone Marisol Loja MD Primary [...] 62 04/11/2015 3:19 PM CDT Temperature 36.3 C (97.4 F) 02/19/2015 11:51 AM CDT Respiratory Rate 18 [...] through age 75 10/14/201710/14 (Completed outside of [facility] [place]), 10/14/2002 (Completed outside of [facility]) Lipids for age 45-75 04/11/2020 04/11/2015, 03/12/2014, 02/09/2013 Tetanus booster 12/27/2021 12/28/2011, 12/28/2011 COVID-19 vaccine series (2023- season) 2024 Influenza for age 65+ 06/14/2024 Tdap Completed [...] REFLEX MEASURED LDL (04/11/2015 4:14 PM CDT) [facility] CHOLESTEROL,TOTAL 198 100 - 199 mg/dL 04/11/2015 4:43 PM CDT [facility] TRIGLYCERIDES 120 <150 mg/dL 04/11/2015 4:43 PM CDT [facility] HDL CHOLESTEROL 65 >40 mg/dL 5 4:43 PM CDT [facility] NON-HDL CHOLESTEROL 133 <145 mg/dl 04/11/2015 4:43 PM CDT [facility] CHOL/HDL RATIO 3.05 <4.50 04/11/2015 4:43 PM CDT [facility] LDL CHOLESTEROL 109 <=130 mg/dL 04/11/2015 4:43 PM CDT [facility] PATIENT STATUS NON-FASTI NG 04/11/2015 4:43 PM CDT [facility] Blood specimen (specimen) BLOOD SPECIMEN / Unknown Venipuncture / Unknown 04/11/2015 4:14 PM CDT 04/11/2015 4:14 PM CDT Marisol Loja MD CHEMISTRY [facility] [address] [place] [address], * XR MAMMO BILAT SCREEN FFDM (02/14/2015 4:01 PM CDT) Anatomical Region Laterality Modality BREASTS, Breast Left, Breast Right Bilateral Mammography Impressions 02/15/2015 12:08 PM CDT There is no radiographic evidence for malignancy. Recommend annual mammograms. A lay language report of this examination will be provided to the patient. MAMMOGRAM ASSESSMENT: ACR 2 Benign Narrative 02/15/2015 12:08 PM CDT XR MAMMO BILAT SCREEN FFDM [G0202.0] CLINICAL HISTORY: This is an asymptomatic 64 y.o. patient. INDICATION FOR EXAM: Mammogram Screening. TECHNIQUE: CC & MLO views were obtained. This digital study was evaluated with the assistance of Computer-Aided Detection. COMPARISON FILMS: Yes 02/23/14 [facility] 02/09/13 [facility] FINDINGS: Mammographically, the breast tissue is almost entirely fat. No suspicious masses or microcalcifications. Benign appearing calcifications within left breast and Intramammary lymph node within both breasts. Procedure Note Naveed Vazquez DO - 02/15/2015 XR MAMMO BILAT SCREEN FFDM [G0202.0] CLINICAL HISTORY: This is an asymptomatic 64 y.o. patient. INDICATION FOR EXAM: Mammogram Screening. TECHNIQUE: CC & MLO views were obtained. This digital study was evaluatedwith the assistance of Computer-Aided Detection. COMPARISON FILMS: Yes 02/23/14 [facility] 02/09/13 [facility] FINDINGS: Mammographically, the breast tissue is almost [...] 5:33 AM 05/25/2014 1:50 PM Care Teams Public Relations Intern Relationship Specialty Start Date End Date Marisol Loja MD [address] [place] [id number] PCP - General Family Practice 02/19/14
--- NOTE | 2024-09-18 09:45 | CRLHL7_ITS ---
For Patients: As a result of the Cures Act, medical imaging exams and procedure reports are released immediately into your electronic medical record. You may view this report before your referring provider. If you have questions, please contact your health care provider. BILATERAL SCREENING MAMMOGRAM WITH COMPUTER-AIDED DETECTION AND TOMOSYNTHESIS TECHNIQUE: CC and MLO views were obtained. These mammographic images have been obtained using full-field digital technique. These mammographic images were interpreted with the benefit of computer-aided detection. Breast Tomosynthesis was used in this interpretation. COMPARISON FILM: 09/17/23, 06/20/22, 05/23/21. FINDINGS: There are scattered areas of fibroglandular density IMPRESSION: There is no radiographic evidence for malignancy. ASSESSMENT: BI-RADS Category 1: Negative RECOMMENDATION: Routine screening mammogram in 1 year. A lay language report of this examination will be provided to the patient. Nadeem Irizarry M.D. Diagnostic Radiologist [email or web address] Transcribed: 3:51 p.edi hoyt/Dictated by: Nadeem Irizarry MD @ 09/22/2024 9:55:00 AM (Electronically Signed)
== END 2024-09-18 09:27 | disposition home or self-care (01) ==
LOC: MAMMO 09:27
PROVIDERS: PCP Family Medicine; Visit Provider Family Medicine
DX: Z12.31 Encounter for screening mammogram for malignant neoplasm of breast (principal)
CPT/HCPCS: 77063; 77067

== ENCOUNTER 2024-09-21 10:00 | Outpatient (CLI) | payer MEDICARE, BC, SELFPAY | END 2024-09-21 10:01 | disposition home or self-care (01) | LOC: NFLDREF 09-23 07:53 | PROVIDERS: PCP Family Medicine; Referring Provider Family Medicine; Visit Provider Family Medicine | DX: E78.5 Hyperlipidemia, unspecified (principal); E11.9 Type 2 diabetes mellitus without complications; I10 Essential (primary) hypertension; E11.319 Type 2 diabetes mellitus with unspecified diabetic retinopathy without macular edema | CPT/HCPCS: 80053; 80061; 82043; 82570 ==

== ENCOUNTER 2024-11-20 16:18 | Emergency (ER) | payer MEDICARE, BC, SELFPAY ==
--- OUTSIDE RECORDS SUMMARY | 2024-11-20 16:20 | XMS_ITS | Clinical Summary ---
Author Organization [employer] [facility] Address [place], [place] [address] Care Team Providers Care Power Equipment Mechanics Instructor Name Role Phone PurviMarisol dozier MD Primary Care Provider Allergies Active Allergy Reactions Criticality Noted Date Comments Venom-Honey Bee Throat Swelling/Closing 015 Cyclobenzaprine 10/05/2009 Tuna Oil Hives 12/28/2011 Medications ibuprofen (ADVIL; MOTRIN) 600 mg tablet Take 1 tablet by mouth every 6 hours if needed for Pain. 30 tablet 05/27/2014 11:29 AM CDT 4 Active naproxen (NAPROSYN) 500 mg tablet Take 1 tablet by mouth 2 times daily with meals. 30 tablet 1 4 Active lisinopril-hydroc hlorothiazide (10-12.5 mg) tablet (PRINZIDE; ZESTORETIC)Indica tions:HTN (hypertension) Take 1 tablet by mouth once daily. 90 tablet 3 5 Active blood sugar diagnostic (ACCU-CHEK SMARTVIEW TEST STRIP) stripIndications: Type 2 diabetes mellitus without complication (HC) Dispense test strips covered by the patient insurance. Test 3 times per week 50 Strip 3 5 Active lancets (ACCU-CHEK FASTCLIX)Indicati ons:Type 2 diabetes mellitus without complication (HC) Test 3 times per week 102 Each 3 5 Active bisacodyl (DULCOLAX) 5 mg tabletIndications :Type 2 diabetes mellitus without complication (HC) Take 1 tablet by mouth once daily if needed for Constipation. 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 Gender Identity Not on file Sexual Orientation Not on file Occupation Industry Job Start Date Job End Date Cook Not on file Not on file Not on file Obstetrics History Para Term [...] C screening for ag e 18-79 1970 Pneumococcal series for age 50+ (1 of 1 - PCV) 2002 Zoster (shingles) series for age 50+ (2 of 3) 05/07/2014 03/12/2014 Mammogram for age 45-75 02/15/2016 02/15/20 15, 02/23/2014, 02/09/2013, Additional history exists DEXA/DXA scan for age 65+ 2017 04/12/2015 Colonoscopy through age 75 10/14/201710/14 (Completed outside of [facility]), 10/14/2002 (Completed outside of [facility]) Lipids for age 45-75 04/11/2020 04/11/2015, 03/12/2014, 02/09/2013 Tetanus booster 12/27/2021 12/28/2011, 12/28/2011 COVID-19 vaccine series ( - 2023- season) 2024 Influenza for age 65+ 06/14/2024 RSV vaccine for adults or (1 - 1-dose 75+ series) 2027 Tdap Completed 12/28/2011 Procedures Procedure Name Priority [...] scanned document for results of this study. us Marisol Loja MD DEXA Final R esult * LIPID PANEL W REFLEX MEASURED LDL (04/11/2015 4:14 PM CDT) CHOLESTEROL,TOTAL 198 100 - 199 mg/dL 04/11/2015 4:43 PM CDT [facility] TRIGLYCERIDES 120 <150 mg/dL 04/11/2015 4:43 PM CDT [facility] HDL CHOLESTEROL 65 >40 mg/dL 5 4:43 PM CDT [facility] NON-HDL CHOLESTEROL 133 <145 mg/dl 04/11/2015 4:43 PM CDT [facility] CHOL/HDL RATIO 3.05 <4.50 04/11/2015 4:43 PM CDT [facility] LDL CHOLESTEROL 109 <=130 mg/dL 04/11/2015 4:43 PM CDT [facility] PATIENT STATUS NON-FASTI NG 04/11/2015 4:43 PM CDT [facility] Blood specimen (specimen) BLOOD SPECIMEN / Unknown Venipuncture / Unknown 04/11/2015 4:14 PM CDT 04/11/2015 4:14 PM CDT Marisol Loja MD CHEMISTRY Final R esult [facility] [address] [place] [address], * XR MAMMO BILAT SCREEN FFDM (02/14/2015 [...] of Computer-Aided Detection. COMPARISON FILMS: Yes 02/23/14 [facility] 02/09/13 [facility] FINDINGS: Mammographically, the breast tissue is almost entirely fat. No suspicious masses or microcalcifications. Benign appearing calcifications within left breast and Intramammary lymph node within both breasts. Procedure Note Naveed Vazquez, - 02/15/2015 XR MAMMO BILAT SCREEN FFDM [G0202.0] CLINICAL HISTORY: This is an asymptomatic 64 y.o. patient. INDICATION FOR EXAM: Mammogram Screening. TECHNIQUE: CC & MLO views were obtained. This digital study was evaluatedwith the assistance of Computer-Aided Detection. COMPARISON FILMS: Yes 02/23/14 [facility] 02/09/13 [facility] FINDINGS: Mammographically, the breast tissue is almost entirely fat. Nosuspicious masses or microcalcifications. Benign appearing calcificationswithin left breast and Intramammary lymph node within both breasts. IMPRESSION: There is no radiographic evidence for malignancy. Recommendannual mammograms. A lay language report of this examination will be provided to the patient. MAMMOGRAM ASSESSMENT: ACR 2 Benign Marisol Loja MD MAMMO Final R esult from Last 3 Months or Most Recently Relevant to Health Maintenance Insurance [employer] Advance Directives * Full Code (Latest Code Status on File) Date Activated Date Inactivated Comments 05/25/2014 1:50 PM 05/27/2014 3:28 PM * Full Code Date Activated Date Inactivated Comments 05/25/2014 5:33 AM 05/25/2014 1:50 PM Care Teams Power Equipment Mechanics Instructor Relationship Specialty Start Date End Date Marisol [place] [address] PCP - General Family Practice 02/19/14
[2024-11-20 16:44] VITALS: BP 129/77; PULSE 65; RESP 18; TEMP 36.7; O2SAT 97; BMI 43.9
--- NOTE | 2024-11-20 17:51 | ED_ITS ---
HPI - Abdominal Pain General Time Seen by Provider: 17:51 Date Seen: 11/20/24 Chief Complaint: Abdominal Pain Stated Complaint: Sharp pain L side Time Seen by Provider: 11/20/24 17:51 Source: patient, RN notes reviewed and old records reviewed Mode of arrival: ambulatory Limitations: no limitations History of Present Illness HPI narrative: This 74-year-old female is coming in with 1 month history of left-sided upper abdominal pain that has been worsening. She will sometimes feel sharp pain in there, this can come with activity or just at rest, nothing seems to precipitate it. She has noticed no changes with eating, no nausea vomiting, no diarrhea. No urinary changes. About 11 years ago she had an episode of pancreatitis, she does not drink alcohol, states they really did not find out why she had pancreatitis. She has had no history kidney stones. She has noticed no reflux symptoms, no regurgitant symptoms. She has not really tried anything for this. Patient does have diabetes, hypertension, morbid obesity, history of tubular adenoma, hyperlipidemia. The pain will wrap into her back at times on the left side. She has noted no rash. There has been no fevers or chills. This does not seem to be positional or exacerbate with movement. She has had a robotic assisted hysterectomy with BSO due to endometrial cancer per review of her chart. Related Data Previous Rx's ?Medication ?Instructions ?Recorded fluticasone propionate 50 2 spray intranasal DAILY #16 grams 04/18/22 mcg/actuation nasal spray,suspension aspirin 81 mg tablet,delayed 81 mg PO DAILY #90 tabs 09/18/23 release empagliflozin 10 mg tablet 10 mg PO QAM #90 tabs 03/26/24 (Jardiance) blood sugar diagnostic (OneTouch #200 ea 06/04/24 Verio test strips) cholecalciferol (vitamin D3) 50 2,000 unit PO BID #100 tabs 09/29/24 mcg (2,000 unit) tablet cyanocobalamin (vitamin B-12) 500 500 mcg PO QDAY #90 tabs 09/29/24 mcg tablet lisinopril 10 1 tab PO DAILY #90 tabs 09/29/24 mg-hydrochlorothiazide 12.5 mg tablet metformin 500 mg tablet,extended 1,000 mg (2 x 500 mg) PO BID #360 09/29/24 release 24 hr tabs simvastatin 10 mg tablet 10 mg PO .Bedtime #90 tabs 09/29/24 lancets 33 gauge (OneTouch Delica #100 ea 10/05/24 Plus Lancet) Allergies Allergy/AdvReac Type Severity Reaction Status Date / Time bupropion (From Contrave) Allergy Intermediate Nausea, Verified 11/20/24 18:46 Vomiting naltrexone (From Contrave) Allergy Intermediate Nausea, Verified 11/20/24 18:46 Vomiting cyclobenzaprine Allergy Unknown Verified 11/20/24 18:46 bee pollen Allergy Verified 11/20/24 18:46 tuna oil Allergy Verified 11/20/24 18:46 Review of Systems Status of ROS Reports: 6 or more systems reviewed and unremarkable except as noted in History and below [facility] Medical History Ribs, multiple fractures ?S22.49XA - Multiple fractures of ribs, unspecified side, initial encounter for closed fracture (ICD-10) Osteopenia ?M85.80 - Other specified disorders of bone density and structure, unspecified site (ICD-10) Tricompartment osteoarthritis of left knee ?M17.12 - Unilateral primary osteoarthritis, left knee (ICD-10) Patellar contusion ?S80.00XA - Contusion of unspecified knee, initial encounter (ICD-10) Diabetic retinopathy (03/2022) ?E11.319 - Type 2 diabetes mellitus with unspecified diabetic retinopathy without macular edema (ICD-10) Vitamin D deficiency ?E55.9 - Vitamin D deficiency, unspecified (ICD-10) Type 2 diabetes mellitus ?E11.9 - Type 2 diabetes mellitus without complications (ICD-10) Morbid obesity with body mass index (BMI) of 40.0 to 44.9 in adult ?E66.01 - Morbid (severe) obesity due to excess calories (ICD-10) ?Z68.41 - Body mass index [BMI] 40.0-44.9, adult (ICD-10) Malignant neoplasm of uterus (2013) ?C55 - Malignant neoplasm of uterus, part unspecified (ICD-10) Hypertension ?I10 - Essential (primary) hypertension (ICD-10) History of echocardiography (2013) ?Z92.89 - Personal history of other medical treatment (ICD-10) History of acute pancreatitis (2011) ?Z87.19 - Personal history of other diseases of the digestive system (ICD-10) Hirsutism ?L68.0 - Hirsutism (ICD-10) Surgical History History of robot-assisted laparoscopic hysterectomy (2013) ?Z90.710 - Acquired absence of both cervix and uterus (ICD-10) History of right knee surgery (1985) ?Z98.890 - Other specified postprocedural states (ICD-10) History of hysterectomy (2013) ?Z90.710 - Acquired absence of both cervix and uterus (ICD-10) History of colonoscopy (08/07/18) ?Z98.890 - Other specified postprocedural states (ICD-10) History of bilateral salpingo-oophorectomy (BSO) (2013) ?Z90.79 - Acquired absence of other genital organ(s) (ICD-10) ?Z90.722 - Acquired absence of ovaries, bilateral (ICD-10) Family History Brother Asthma Diabetes Pancreatic cancer Mother Coronary artery disease Sister Thyroid disease Social History Narrative: , retired cook, 2 adult children, lives [place] , [place] Exercises regularly, walks 30 min 4/week Non-smoker Rarely consumes alcohol What is your current living situation?: I presently have a place to live Problems where you live: no known problems In the past 12 months, utilities in danger of being shut off: no In past 12 months, lack of transportation kept you from medical appts, meetings, work, or getting things needed for daily living: no In the past 12 mos, have been you worried that your food would run out before you had money to buy more?: never true In the past 12 mos, the food you bought just didn't last and you didn't have money to buy more?: never true Smoking Status: Former smoker Do you use any of these nicotine containing products: None Second hand tobacco smoke exposure: No How often do you have a drink containing alcohol: never AUDIT-C Alcohol total score: 0 Non-prescribed substance use: denies use How often does anyone, including family, friends and others, physically hurt you : never How often does anyone, including family, friends and others, insult or talk down to you: never How often does anyone, including family, friends and others, threaten you with harm: never How often does anyone, including family, friends and others, scream or curse at you: never Exam Const: Vital Signs, click to edit/add: Vital Signs - 24 hr 11/20/24 16:44 Temperature 98.1 F Pulse Rate [Right Pulse Oximeter] 65 Respiratory Rate 18 Blood Pressure [Le ft Upper Arm] 129/77 Pulse Oximetry 97 Oxygen Delivery Me thod Room Air Pastora is a very pleasant 74-year-old woman that is alert, interactive, no apparent distress. She is lying in the bed and examined to would looks comfortable. She is able to speak in complete sentences. Sclera clear, pupils equal round reactive. Symmetrical facial function. Lungs are clear, good air entry, wheeze or crackles, no tachypnea, no accessory muscle use. CV regular rate and rhythm, no murmur, normal S1-S2, no S3-S4. Abdomen is obese, has definite left upper quadrant tenderness with some guarding and rebound, do not feel underlying mass but body habitus and her reaction to palpation in this area limit exam. She is nontender elsewhere, no organomegaly or masses felt elsewhere. Patient was ambulatory into the ED of her own accord. Documenting provider has reviewed patient's vital signs: yes Course Course ED Course: Patient declines any pain management at this time. Will proceed with full complement of labs including lipase, liver functions, white count, urinalysis to look at underlying pathology. Will be proceeding with CT abdomen pelvis with IV contrast. Need to rule out intra-abdominal pathology. This is not necessarily atypical presentation for pancreatitis but she remembers it feeling this way before. Reevaluation(s) Time of Reevaluation #1: 20:07 Reevaluation #1: Have reviewed patient's CT with her, went over incidental findings. She certainly could have a thoracic disc giving her the pain that she is having. Recommended trying some Tylenol baseline as she is not done anything yet. She is to follow up with her primary care provider next week. Did go over the recommendations for follow-up imaging 6-12 months for the renal lesions, she was given a copy of the CT to give to her doctor. There is also the incidental findings of the pulmonary nodules, cholelithiasis. There is no evidence on examination or laboratory findings or CT findings that she is having acute cholecystitis or biliary colic. Vital Signs Vital signs: Initial Vital Signs Temperature 98.1 F 11/20/24 16:44 Temperature Source Temporal Artery Scan 11/20/24 16:44 Pulse Rate 65 11/20/24 16:44 Pulse Rhythm Regular 11/20/24 16:44 Respiratory Rate 18 11/20/24 16:44 Blood Pressure 129/77 11/20/24 16:44 Blood Pressure Mean 94 11/20/24 16:44 Blood Pressure Position Sitting 11/20/24 16:44 Pulse Oximetry 97 11/20/24 16:44 Oxygen Delivery Method Room Air 11/20/24 16:44 Vital Signs Temperature 98.1 F 11/20/24 16:44 Pulse Rate 65 11/20/24 16:44 Respiratory Rate 18 11/20/24 16:44 Blood Pressure 129/77 11/20/24 16:44 Pulse Oximetry 97 11/20/24 16:44 Oxygen Delivery Method Room Air 11/20/24 16:44 Temperature 98.1 F 11/20/24 16:44 Pulse Rate 65 11/20/24 16:44 Respiratory Rate 18 11/20/24 16:44 Blood Pressure 129/77 11/20/24 16:44 Pulse Oximetry 97 11/20/24 16:44 Oxygen Delivery Method Room Air 11/20/24 16:44 MDM - Abdominal Pain Lab Data Attestation: I reviewed the patient's lab results. Labs: Lab Results 11/20/24 11/20/24 Range/Units 18:20 19:00 WBC 9.61 (4.50-11.00) K/uL RBC 4.28 (4.00-5.20) m/uL Hgb 12.7 (12.0-16.0) gm/dL Hct 40.1 (33.0-51.0) % MCV 94 (80-100) fL MCH 30 (26-34) pg MCHC 32 (32-36) gm/dL RDW Coeff of Jaylen 13.2 (11.5-15.5) % Plt Count 294 (140-440) K/uL Neut % (Auto) 62.1 (42.0-72.0) % Lymph % (Auto) 28.3 (20-44) % [place] % (Auto) 6.8 (0.0-11.0) % Eos % (Auto) 2.1 (0.0-7.0) % Baso % (Auto) 0.6 (0.0-3.0) % Neut # (Auto) 5.97 (1.7-7.0) K/uL Lymph # (Auto) 2.72 (0.90-2.90) K/uL [place] # (Auto) 0.70 (0.00-0.90) K/UL Eos # (Auto) 0.20 (0.00-0.50) K/uL Baso # (Auto) 0.06 (0.00-0.30) K/uL Abs Immat Gran (auto) 0.01 (0.00-0.30) K/uL Imm/Tot Granulo (auto) 0.1 % Sodium 136 (135-149) mmol/L Potassium 3.8 (3.6-5.1) mmol/L Chloride 98 (96-114) mmol/L Carbon Dioxide 31 (20-32) mmol/L Anion Gap 7 (7-15) mEq/L BUN 13 (7-30) mg/dL Creatinine 0.6 (0.5-1.5) mg/dL Estimated Creat Clear 42.07 Estimated GFR 95 ml/min Glucose 127 H (60-115) mg/dL Lactate 0.9 (0.5-1.9) mmol/L Calcium 9.4 (8.4-10.6) mg/dL Total Bilirubin 1.4 (0.1-1.5) mg/dL AST 48 H (12-35) U/L ALT 48 H (4-35) U/L Alkaline Phosphatase 62 (40-150) U/L C-Reactive Protein 2.8 H (0.5-1.0) mg/dL Total Protein 7.0 (6.0-8.3) g/dL Albumin 4.2 (3.3-5.0) g/dL Lipase 282 (23-300) U/L Urine Color Yellow (Yellow) Urine Appearance Clear (Clear) Urine pH 5.5 (5.0-8.5) Ur Specific [place] <= 1.005 (1.000-1.030) Urine Protein Negative (Negative) Urine Glucose (UA) Negative (Negative) Urine Ketones Negative (Negative) Urine Blood Negative (Negative) Urine Nitrite Negative (Negative) Urine Bilirubin Negative (Negative) Urine Urobilinogen 0.2 (0.2-1.0) Ur Leukocyte Esterase Negative (Negative) Urine RBC 0-2 (0-2) Urine WBC 0-2 (0-5) Ur Squamous Epith Cells None (None-Few) Urine Bacteria None (None) Imaging Data CT scan - abdomen: Attestation: I have reviewed the pertinent imaging results. Radiologist's impression: Patient: PASTORA SMITH Facility:?[facility] Patient ID:?[id number] Site Patient ID:?[id number]. Site :?[id number] Study:?CT-Abdomen/Pelvis WITH 121 CC ISOVUE 370-11/20/2024 6:51:16 PM Ordering Physician:?Jourdan Meyers Final Report: INDICATION: Left-sided abdominal pain. COMPARISON: CT 07/30/2012, radiograph 08/13/2017 TECHNIQUE: CT of the abdomen and pelvis with intravenous contrast. Multiplanar axial, coronal, and sagittal reformats were reconstructed. Contrast: 121 mL Isovue 370. FINDINGS: Lung bases: There are 2 adjacent 3 millimeter nodules in the right middle lobe. These were not previously seen. 3 millimeter subpleural right lower lobe nodule is unchanged. 3 millimeter left lower lobe nodule on series 3, image 27 is unchanged. Liver: Diffuse hepatic steatosis. Gallbladder and bile ducts: Cholelithiasis with several small gallstones layering dependently. No gallbladder wall thickening or pericholecystic inflammatory change. No bile duct dilation. Pancreas: Normal. Spleen: Normal. Adrenal glands: Normal. Kidneys: Normal renal size and position. There are several low-density renal lesions that are consistent with cysts. There are a few lesions that are too small to definitively characterize. No solid mass seen. There is a 2 millimeter nonobstructing calculus in the left lower pole. No urinary tract dilation. Urinary bladder: Normal. Pelvis: No cyst or mass. Vessels: Atherosclerotic vascular calcifications, few. No aortic aneurysm. Widely patent mesenteric vessels. Bowel: No dilated or inflamed bowel. Normal appendix. There are very few distal colonic diverticuli without diverticulitis. [id number] stool burden. Lymph nodes: No adenopathy. Peritoneum: No ascites. Abdominal wall: Tiny fat containing umbilical hernia. Bones: No fractures. No focal worrisome bone lesions. IMPRESSION: 1. No acute findings or CT explanation for the patient`s left-sided abdominal pain. 2. There are a few scattered pulmonary nodules that were not definitively seen in 2012. Per the Fleischner society criteria, can consider a follow-up CT in 1 year for patients that are high-risk of primary pulmonary malignancy. 3. Cholelithiasis. 4. Nonobstructing left nephrolithiasis, 2 millimeters. 5. Diverticulosis without diverticulitis. 6. There are a few tiny renal lesions that are too small to definitively characterize. Can consider a CT or MR abdomen without and with IV contrast in 6- 12 months to assess for interval growth and better characterize renal lesions. Please note that all CT scans at this facility use dose modulation, iterative reconstruction, and/or weight-based dosing when appropriate to reduce radiation dose to as low as reasonably achievable. Dictated by Germaine Cash MD @ 11/20/2024 7:39:32 PM (Electronic Signature) Discharge Plan Discharge Clinical Impression: Acute abdominal pain in left flank Patient Disposition: Home, Self-Care Condition: Stable Instructions: Flank Pain (ED) Additional Instructions: Try Tylenol 1000 mg 3 times a day for pain. Do recommend that you schedule follow-up in clinic with your primary next week. Please bring a copy of the CT, there are many incidental findings that may warrant further evaluation and follow-up, specially the renal lesions that radiology recommended follow-up imaging in 6-12 months. It is possible that this pain on the left side could be coming from your back, like a pinched nerve. Try the Tylenol in see if it does help. Your primary provider can help work this up further. There certainly is no evidence of pancreatitis. Activity Level: Activity as Tolerated Prescriptions: No Action fluticasone propionate 50 mcg/actuation spray,suspension 2 spray intranasal DAILY Qty: 16 8RF aspirin 81 mg tablet,delayed release (DR/EC) 81 mg PO DAILY Qty: 90 3RF Jardiance 10 mg tablet 10 mg PO QAM Qty: 90 1RF cyanocobalamin (vitamin B-12) 500 mcg tablet 500 mcg PO QDAY Qty: 90 3RF lisinopril-hydrochlorothiazide 10-12.5 mg tablet 1 tab PO DAILY Qty: 90 3RF metformin 500 mg tablet extended release 24 hr 1,000 mg PO BID Qty: 360 3RF simvastatin 10 mg tablet 10 mg PO .Bedtime Qty: 90 1RF cholecalciferol (vitamin D3) 50 mcg (2,000 unit) tablet 2,000 unit PO BID Qty: 100 3RF (DME) OneTouch Verio test strips Strip See Rx Instructions .Route Qty: 200 1RF Rx Instructions: Use to test blood sugar 1 time daily (DME) lancets [OneTouch Delica Plus Lancet] 33 gauge misc See Rx Instructions .ROUTE .COMPLEX Qty: 100 3RF Dose Instruction: 1 TEST DAILY Rx Instructions: 1 TEST DAILY Follow Up/Referrals: Gissell Sanchez MD [Primary Care Provider] - [facility]
--- NOTE | 2024-11-20 18:00 | CRLHL7_ITS ---
For Patients: As a result of the 21st Century Cures Act, medical imaging exams and procedure reports are released immediately into your electronic medical record. You may view this report before your referring provider. If you have questions, please contact your health care provider. INDICATION: Left-sided abdominal pain. COMPARISON: CT 07/30/2012, radiograph 08/13/2017 TECHNIQUE: CT of the abdomen and pelvis with intravenous contrast. Multiplanar axial, coronal, and sagittal reformats were reconstructed. Contrast: 121 mL Isovue 370. FINDINGS: Lung bases: There are 2 adjacent 3 millimeter nodules in the right middle lobe. These were not previously seen. 3 millimeter subpleural right lower lobe nodule is unchanged. 3 millimeter left lower lobe nodule on series 3, image 27 is unchanged. Liver: Diffuse hepatic steatosis. Gallbladder and bile ducts: Cholelithiasis with several small gallstones layering dependently. No gallbladder wall thickening or pericholecystic inflammatory change. No bile duct dilation. Pancreas: Normal. Spleen: Normal. Adrenal glands: Normal. Kidneys: Normal renal size and position. There are several low-density renal lesions that are consistent with cysts. There are a few lesions that are too small to definitively characterize. No solid mass seen. There is a 2 millimeter nonobstructing calculus in the left lower pole. No urinary tract dilation. Urinary bladder: Normal. Pelvis: No cyst or mass. Vessels: Atherosclerotic vascular calcifications, few. No aortic aneurysm. Widely patent mesenteric vessels. Bowel: No dilated or inflamed bowel. Normal appendix. There are very few distal colonic diverticuli without diverticulitis. Tqod-kx-wyxlrlxt stool burden. Lymph nodes: No adenopathy. Peritoneum: No ascites. Abdominal wall: Tiny fat containing umbilical hernia. Bones: No fractures. No focal worrisome bone lesions. IMPRESSION: 1. No acute findings or CT explanation for the patient`s left-sided abdominal pain. 2. There are a few scattered pulmonary nodules that were not definitively seen in 2012. Per the Fleischner society criteria, can consider a follow-up CT in 1 year for patients that are high-risk of primary pulmonary malignancy. 3. Cholelithiasis. 4. Nonobstructing left nephrolithiasis, 2 millimeters. 5. Diverticulosis without diverticulitis. 6. There are a few tiny renal lesions that are too small to definitively characterize. Can consider a CT or MR abdomen without and with IV contrast in 6-12 months to assess for interval growth and better characterize renal lesions. Please note that all CT scans at this facility use dose modulation, iterative reconstruction, and/or weight-based dosing when appropriate to reduce radiation dose to as low as reasonably achievable. Dictated by Germaine Cash MD @ 11/20/2024 7:39:32 PM (Electronically Signed)
--- OUTSIDE RECORDS SUMMARY | 2024-11-20 18:08 | XMS_ITS | Clinical Summary ---
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 Gender Identity Not on file Sexual Orientation [...] through age 75 10/14/201710/14 (Completed outside of [facility]), 10/14/2002 (Completed outside of [facility]) Lipids for age 45-75 04/11/2020 04/11/2015, 03/12/2014, [...] - 199 mg/dL 04/11/2015 4:43 PM CDT [facility] TRIGLYCERIDES 120 <150 mg/dL 04/11/2015 4:43 PM CDT [facility] HDL CHOLESTEROL 65 >40 mg/dL 5 4:43 PM CDT [facility] NON-HDL CHOLESTEROL 133 <145 mg/dl 04/11/2015 4:43 PM CDT [facility] CHOL/HDL RATIO 3.05 <4.50 04/11/2015 4:43 PM CDT [facility] LDL CHOLESTEROL 109 <=130 mg/dL 04/11/2015 4:43 PM CDT [facility] PATIENT STATUS NON-FASTI NG 04/11/2015 4:43 PM CDT [facility] Blood specimen (specimen) BLOOD SPECIMEN / Unknown Venipuncture / Unknown 04/11/2015 4:14 PM CDT 04/11/2015 4:14 PM CDT Marisol Loja MD CHEMISTRY Final R esult [facility] [address] [place] [address], * XR MAMMO BILAT SCREEN FFDM (02/14/2015 [...] of Computer-Aided Detection. COMPARISON FILMS: Yes 02/23/14 [facility] 02/09/13 [facility] FINDINGS: Mammographically, the breast tissue is [...] of Computer-Aided Detection. COMPARISON FILMS: Yes 02/23/14 [facility] 02/09/13 [facility] FINDINGS: Mammographically, the breast tissue is [...] 5:33 AM 05/25/2014 1:50 PM Care Teams Canvassing Manager Relationship Specialty Start Date End Date [place]isol [place] [address] PCP - General Family Practice 02/19/14
[2024-11-20 18:26] LABS: Lactate* 0.9 mmol/L (0.5-1.9)
[2024-11-20 18:27] LABS: Basophils Absolute Auto 0.06 K/uL (0.00-0.30); Basophils Percent Auto 0.6 % (0.0-3.0); Eosinophils Percent Auto 2.1 % (0.0-7.0); Hematocrit 40.1 % (33.0-51.0); Hemoglobin* 12.7 gm/dL (12.0-16.0); Immature Granulocytes Abs Auto 0.01 K/uL (0.00-0.30); Immature Granulocytes Pct Auto 0.1 %; Lymphocytes Absolute Auto 2.72 K/uL (0.90-2.90); Lymphocytes Percent Auto 28.3 % (20-44); Mean Corpuscular HGB Conc 32 gm/dL (32-36); Mean Corpuscular Hemoglobin 30 pg (26-34); Mean Corpuscular Volume 94 fL (80-100); Monocytes Percent Auto 6.8 % (0.0-11.0); Neutrophils Absolute Auto 5.97 K/uL (1.7-7.0); Neutrophils Percent Auto 62.1 % (42.0-72.0); Platelet Count* 294 K/uL (140-440); RDW Coefficient of Variation % 13.2 % (11.5-15.5); Red Blood Count 4.28 m/uL (4.00-5.20); White Blood Count* 9.61 K/uL (4.50-11.00)
[2024-11-20 18:28] LABS: Slide Review Reflex No
[2024-11-20 18:44] LABS: Albumin* 4.2 g/dL (3.3-5.0); Chloride* 98 mmol/L (96-114)
[2024-11-20 18:45] LABS: Potassium* 3.8 mmol/L (3.6-5.1); Sodium* 136 mmol/L (135-149)
[2024-11-20 18:47] LABS: Creatinine* 0.6 mg/dL (0.5-1.5); Est. Creatinine Clearance* 42.07; Estimated Glomerular Filt Rate 95 ml/min
[2024-11-20 18:48] LABS: Alanine Aminotransferase* 48 U/L (4-35); Alkaline Phosphatase* 62 U/L (40-150); Anion Gap 7 mEq/L (7-15); Aspartate Amino Transferase* 48 U/L (12-35); Bilirubin Total* 1.4 mg/dL (0.1-1.5); Blood Urea Nitrogen* 13 mg/dL (7-30); Calcium* 9.4 mg/dL (8.4-10.6); Carbon Dioxide* 31 mmol/L (20-32); Glucose* 127 mg/dL (60-115); Lipase* 282 U/L (23-300)
[2024-11-20 18:51] LABS: C Reactive Protein* 2.8 mg/dL (0.5-1.0)
[2024-11-20 19:05] LABS: Appearance Urine Clear (Clear); Bilirubin Urine Negative (Negative); Blood Urine Negative (Negative); Color Urine Yellow (Yellow); Glucose Urine Negative (Negative); Ketones Urine Negative (Negative); Leukocyte Esterase Urine Negative (Negative); Nitrite Urine Negative (Negative); Protein Urine Negative (Negative); Specific Gravity Urine <= 1.005 (1.000-1.030); Urobilinogen Urine 0.2 (0.2-1.0); pH Urine 5.5 (5.0-8.5)
[2024-11-20 19:53] LABS: RBC Urine 0-2 (0-2); WBC Urine 0-2 (0-5)
[2024-11-20 20:17] LABS: Creatinine, Point-of-Care* 0.7 mg/dl (0.6-1.3)
== END 2024-11-20 20:19 | disposition home or self-care (01) ==
PROVIDERS: Emergency Provider Family Medicine; PCP Family Medicine
DX: R10.12 Left upper quadrant pain (principal)
CPT/HCPCS: 36415; 74177; 80053; 81001; 82565; 83605; 83690; 85025; 86140; 99284; Q9967

== ENCOUNTER 2025-03-29 08:40 | Outpatient (CLI) | payer MEDICARE, BC, SELFPAY | END 2025-03-29 08:41 | disposition home or self-care (01) | LOC: NFLDREF 04-02 01:28 | PROVIDERS: PCP Family Medicine; Referring Provider Family Medicine; Visit Provider Family Medicine | DX: I10 Essential (primary) hypertension (principal); E11.319 Type 2 diabetes mellitus with unspecified diabetic retinopathy without macular edema; E55.9 Vitamin D deficiency, unspecified; E78.5 Hyperlipidemia, unspecified; R79.89 Other specified abnormal findings of blood chemistry; E66.01 Morbid (severe) obesity due to excess calories | CPT/HCPCS: 80053; 80061; 82306 ==

== ENCOUNTER 2025-09-27 09:25 | Outpatient (CLI) | payer MEDICARE, BC, SELFPAY | END 2025-09-27 09:26 | disposition home or self-care (01) | LOC: NFLDREF 09-30 03:11 | PROVIDERS: PCP Family Medicine; Referring Provider Family Medicine; Visit Provider Family Medicine | DX: I10 Essential (primary) hypertension (principal); E78.5 Hyperlipidemia, unspecified; E55.9 Vitamin D deficiency, unspecified; E11.319 Type 2 diabetes mellitus with unspecified diabetic retinopathy without macular edema | CPT/HCPCS: 80053; 80061; 82043; 82306; 82570 ==

== ENCOUNTER 2025-09-29 12:57 | Outpatient (CLI) | payer MEDICARE, BC, SELFPAY ==
--- NOTE | 2025-09-29 13:00 | CRLHL7_ITS ---
For Patients: As a result of the Century Cures Act, medical imaging exams and procedure reports are released immediately into your electronic medical record. You may view this report before your referring provider. If you have questions, please contact your health care provider. INDICATION: BILATERAL SCREENING MAMMOGRAM, ASYMPTOMATIC 75 Y/O FEMALE COMPARISON: 09/18/2024, 09/17/2023, 06/20/2022 TECHNIQUE: Digital mammogram in CC and MLO projections including computer-aided detection (CAD) and tomosynthesis. BREAST COMPOSITION: There are scattered areas of fibroglandular density. FINDINGS: No suspicious findings. ASSESSMENT: BI-RADS 1 Negative RECOMMENDATION: Annual screening mammogram. A lay language report of this examination will be provided to the patient. Dictated by: Nadeem Iirzarry MD @ 09/30/2025 09:39:16 (Electronically Signed)
== END 2025-09-29 12:58 | disposition home or self-care (01) ==
LOC: MAMMO 12:58
PROVIDERS: PCP Family Medicine; Visit Provider Family Medicine
DX: Z12.31 Encounter for screening mammogram for malignant neoplasm of breast (principal)
CPT/HCPCS: 77063; 77067